=== PATIENT | female | born 1950 | race Caucasian/White ===

== ENCOUNTER 2018-04-30 06:22 | Day surgery (SDC) | payer MEDICARE, BC ==
[~2018-04-30 06:22] MED LIST: Lactated Ringers 1,000 ML IV SCH; Sodium Chloride 0.9% 10 ML Syringe FLUSH PRN; Sodium Chloride 0.9% 2.5 ML Syringe FLUSH PRN; ceFAZolin 2 GM in Premix Bag 1 BAG IV ONE
[2018-04-30] MEDS ORDERED: Isosulfan Blue 5 ML SDV ONE (06:32)
[2018-04-30] MEDS ORDERED: Bupivacaine 0.5% 30 ML SDV ONE (06:32)
[2018-04-30] MEDS ORDERED: Heparin Sodium 100 Units/ML 3 ML Syringe ONE (06:33)
[2018-04-30] MEDS ORDERED: Lidocaine 2% 5 ML SDV ONE (06:55)
[2018-04-30] MEDS ORDERED: Ondansetron 4 MG/2 ML SDV ONE (06:55)
[2018-04-30] MEDS ORDERED: Propofol 200 MG/20 ML SDV ONE (06:55)
[2018-04-30] MEDS ORDERED: Midazolam 1 MG/ML 2 ML SDV ONE (06:55)
[2018-04-30] MEDS ORDERED: fentaNYL 250 MCG/5 ML SDV ONE (06:55)
--- NOTE | 2018-04-30 07:24 | PCM.PREANE ---
Preanesthetic Assessment - Anesthesia/Transfusion/Family Hx Anesthesia History: Prior Anesthesia Without Reaction Other Type of Anesthesia Reaction Comment: Denies any known problem in past Family History of Anesthesia Reaction: No Transfusion History: No Prior Transfusion(s) - Review of Systems General: No Symptoms Pulmonary: No Symptoms Cardiovascular: No Symptoms Gastrointestinal: No Symptoms Neurological: No Symptoms Other: Reports: None - Physical Assessment NPO Status Date: 04/29/18 O2 Sat by Pulse Oximetry: 97 Respiratory Rate: 18 Vital Signs: Last Vital Signs Temp 36.2 C 04/30/18 07:05 Pulse 92 04/30/18 07:05 Resp 18 04/30/18 07:05 BP 158/85 H 04/30/18 07:05 Pulse Ox 97 04/30/18 07:05 Height: 1.6 m Weight: 80.286 kg ASA Class: 2 Mental Status: Alert & Oriented x3 Airway Class: Mallampati = 1 Dentition: Reports: Normal Dentition ROM/Head Extension: Full Lungs: Clear to Auscultation, Normal Respiratory Effort Cardiovascular: Regular Rate, Regular Rhythm - Allergies Allergies/Adverse Reactions: Allergies Allergy/AdvReac Type Severity Reaction Status Date / Time Chocolate Allergy Hives Uncoded 04/27/18 10:50 Tree Nuts Allergy Hives Uncoded 04/27/18 10:50 - Blood Blood Available: No - Anesthesia Plan Pre-Op Medication Ordered: None - Acknowledgements Anesthesia Type Planned: General Anesthesia Pt an Appropriate Candidate for the Planned Anesthesia: Yes Alternatives and Risks of Anesthesia Discussed w Pt/Guardian: Yes Pt/Guardian Understands and Agrees with Anesthesia Plan: Yes Additional Comments: PMH: htn, dm2, PLAN: ga-lma PreAnesthesia Questionnaire HEENT History: Reports: Other (See Below) Other HEENT History: wears glasses Cardiovascular History: Reports: Hypertension Gastrointestinal History: Reports: GERD, Irritable Bowel Syndrome Genitourinary History: Reports: None Musculoskeletal History: Reports: Arthritis, Fracture Other Musculoskeletal History: Fracture to nose age 4-5 yrs, Left Index finger and Right wrist Neurological History: Reports: None Endocrine/Metabolic History: Reports: Obesity/BMI 30+, Osteopenia Other Endocrine/Metabolic History: "prediabetic" Oncologic (Cancer) History: Reports: Breast Dermatologic History: Reports: Other (See Below) Other Dermatologic History: dry patch on forehead - Past Surgical History Head Surgeries/Procedures: Reports: None GI Surgical History: Reports: Cholecystectomy, Colonoscopy Female Surgical History: Reports: Breast Biopsy Other Female Surgeries/Procedures: rt breast bx x2, left breast lumpectomy Oncologic Surgical History: Reports: Biopsy of Breast, Lumpectomy Other Oncologic Surgeries/Procedures: Breast lumpectomy, hx: fibrocystic breasts - SUBSTANCE USE Smoking Status *Q: Never Smoker Recreational Drug Use History: No - HOME MEDS Home Medications: Home Meds Ascorbate Calcium [Vitamin C] 1 tab PO DAILY 03/28/15 [History] Calcium Carbonate/Vitamin D3 [Calcium 600-Vit D3 400 Tablet] 1 tab PO DAILY [History] Fish Oil/[place]-3 Fatty Acids [Fish Oil 1,000 MG] 1 cap PO DAILY 03/28/15 [ History] Gluc HCl/Csa/Sirisha Hy/Hyalur Ac [Glucosamine Chondroitin] 1 tab PO DAILY [History] Hydrochlorothiazide 1 tab PO PCDINNER 03/28/15 [History] Multivitamin [Multi-Vitamin Daily] 1 tab PO DAILY 03/28/15 [History] Vitamin E 1 cap PO DAILY 03/28/15 [History] Clobetasol [Clobetasol Propionate 0.05% Cream] 1 applic TOP ASDIRECTED PRN 03/09 [History] metFORMIN HCl [Metformin HCl ER] 1 tab PO BEDTIME 03/09/18 [History] Aspirin [Children's Aspirin] 81 mg CHEW DAILY 04/27/18 [History] Omeprazole Magnesium [Prilosec Otc] 20 mg PO ASDIRECTED PRN 04/27/18 [History] - CURRENT (IN HOUSE) MEDS Current Meds: Current Medications Lactated Ringer's (Ringers, Lactated) 1,000 mls @ 125 mls/hr IV ASDIRECTED JAXSON Sodium Chloride (Saline Flush) 10 ml FLUSH ASDIRECTED PRN PRN Reason: Keep Vein Open Sodium Chloride (Saline Flush) 2.5 ml FLUSH ASDIRECTED PRN PRN Reason: Keep Vein Open Discontinued Medications Bupivacaine HCl (Marcaine 0.5%) Confirm Administered Dose 30 ml .ROUTE .STK-MED ONE Stop: 04/30/18 06:33 Fentanyl (Sublimaze) Confirm Administered Dose 250 mcg .ROUTE .STK-MED ONE Stop: 04/30/18 06:56 Heparin Sodium (Porcine) (Heparin Lock Flush 100 Units/Ml) Confirm Administered Dose 300 unit .ROUTE .STK-MED ONE Stop: 04/30/18 06:34 Cefazolin Sodium/Dextrose 2 gm (/ Premix) 50 mls @ 100 mls/hr IV ONETIME ONE Stop: 04/27/18 14:53 Lidocaine HCl (Xylocaine-Mpf 1%) Confirm Administered Dose 10 mls @ as directed .ROUTE .ST-MED ONE Stop: 04/30/18 06:34 Isosulfan Blue (Lymphazurin 1%) Confirm Administered Dose 5 ml .ROUTE .STK-MED ONE Stop: 04/30/18 06:33 Lidocaine (Xylocaine-Mpf 2%) Confirm Administered Dose 5 ml .ROUTE .ST-MED ONE Stop: 04/30/18 06:56 Midazolam HCl (Versed 1 Mg/Ml) Confirm Administered Dose 2 mg .ROUTE .STK-MED ONE Stop: 04/30/18 06:56 Ondansetron HCl (Zofran) Confirm Administered Dose 4 mg .ROUTE .STK-MED ONE Stop: 04/30/18 06:56 Propofol (Diprivan 20 Ml) Confirm Administered Dose 200 mg .ROUTE .STK-MED ONE Stop: 04/30/18 06:56
[2018-04-30] MEDS ORDERED: Sodium Chloride 0.9% 20 ML ONE (10:47)
[2018-04-30] MEDS ORDERED: ceFAZolin 1 GM Vial ONE (10:47)
[2018-04-30] MEDS ORDERED: ePHEDrine 50 MG/ML SDV ONE (10:52)
--- NOTE | 2018-04-30 11:24 | PCM.OPNOTE ---
- General Post-Op/Procedure Note Date of Surgery/Procedure: 04/30/18 Operative Procedure(s): Right internal jugular port a cath placement Findings: RIJ port placement Pre Op Diagnosis: Breast cancer Post-Op Diagnosis: Breast cancer Anesthesia Technique: General LMA Primary Surgeon: Altagracia King Fluid Replacement, Intraop: 800 EBL in mLs: 10 Condition: Good
--- NOTE | 2018-04-30 12:02 | PCM.POSTAN ---
POST ANESTHESIA ASSESSMENT - MENTAL STATUS Mental Status: Alert, Oriented - RESPIRATORY Respiratory Status: Respiratory Rate WNL, Airway Patent, O2 Saturation Stable - CARDIOVASCULAR CV Status: Pulse Rate WNL, Blood Pressure Stable - GASTROINTESTINAL GI Status: No Symptoms - POST OP HYDRATION Hydration Status: Adequate & Stable
--- NOTE | 2018-04-30 12:17 | PCM48HPAN ---
Post Anesthesia Note - EVALUATION WITHIN 48HRS OF ANESTHETIC Vital Signs in Normal Range: Yes Patient Participated in Evaluation: Yes Respiratory Function Stable: Yes Airway Patent: Yes Cardiovascular Function Stable: Yes Hydration Status Stable: Yes Pain Control Satisfactory: Yes Nausea and Vomiting Control Satisfactory: Yes Mental Status Recovered: Yes Resp Rate: 16
--- NOTE | 2018-04-30 13:27 | CR ---
EXAMINATION: Portable chest radiograph. HISTORY: Port placement. FINDINGS: The trachea is midline. The cardiomediastinal silhouette is within normal limits. Mild atelectasis and/or infiltrate within the left lung base. There is right-sided portacatheter noted. No pneumothorax. Osseous structures appear unremarkable. IMPRESSION: 1. Right-sided portacatheter noted with tip in the SVC. 2. Left basilar atelectasis and/or infiltrate.
[2018-04-30 13:28] VITALS: BP 123/77
--- NOTE | 2018-05-01 12:21 | OR ---
SURGEON: GREGORIA MENDOZA MD DATE OF PROCEDURE: 04/30/2018 PREOPERATIVE DIAGNOSIS: Invasive ductal carcinoma of the breast. POSTOPERATIVE DIAGNOSIS: Invasive ductal carcinoma of the breast. PROCEDURE PERFORMED: Right internal jugular Port-A-Cath placement. ANESTHESIA: General LMA. FLUIDS: 800 mL of crystalloid. ESTIMATED BLOOD LOSS: 5 mL. FINDINGS: Placement of right internal jugular Port-A-Cath. COMPLICATIONS: None. INDICATIONS: The patient is a 67-year-old female with invasive ductal carcinoma of the left breast. She will be undergoing chemotherapy and is in need of a Port-A-Cath. I explained the procedure, expected perioperative course, and risks including bleeding, infection, or damage to surrounding structures including hemothorax or pneumothorax. The patient verbalized understanding and wishes to proceed. PROCEDURE IN DETAIL: The patient was brought into the OR and placed on the OR table in supine position. A time-out was completed verifying the patient's name, age, date of , allergies, and procedure to be performed. An ultrasound was used to verify the vascular anatomy of the right side of the neck. General LMA anesthesia was induced. Both arms were tucked to the patient's side and a shoulder roll placed under her shoulders. The neck and chest were prepped and draped in usual standard fashion. The patient was placed into Trendelenburg position. I then used an ultrasound to reverify the vascular anatomy of the right side of the neck. 1% lidocaine plain and 0.5% Marcaine plain were used to anesthetize the area overlying the vascular structures as well as the anterior chest wall where the port would be placed. Using ultrasound guidance, I guided a guide needle into the right internal jugular vein. A brisk return of venous blood was noted. A guidewire was placed down this needle into the vein and directed into the superior vena cava. The needle was removed and the C-arm was brought in to verify placement of the guidewire in the correct position. I then secured the guidewire to the drape and turned my attention to the right upper chest. I chose a spot two fingerbreadths below the lateral clavicle on the anterior chest wall. A 4 cm incision was made using a 15 blade. Cautery was used to create a subcutaneous pocket underneath this area in order for the Port- A-Cath device to be placed in. I tunneled the catheter tubing from the port site on the chest up to the guidewire insertion site on the neck. A vascular sheath and dilator were then placed along the guidewire, and C-arm was used to dilate the venous tract under direct visualization. The dilator and guidewire were removed and the catheter tubing was then placed down the vascular sheath. It was then peeled away. Under fluoroscopic guidance, I pulled the catheter tubing back into the SVC. A good return of venous blood was noted at the end of the catheter tubing. The catheter tubing was flushed with injectable saline. I trimmed the catheter tubing and placed it on the Port- A-Cath device. The port was then placed in the subcutaneous chest wall pocket. It was secured to the chest wall with two interrupted 2-0 Prolene sutures on either side of the Port-A-Cath device in the pocket. I accessed the port and a good return of venous blood was again noted. I then locked the Port-A- Cath device with 4 mL of heparinized saline. The chest wall site was closed with interrupted 3-0 Vicryl in the subcutaneous fat layer and the skin was closed with a running 4-0 Monocryl stitch. The guidewire insertion site at the neck was closed with interrupted 4-0 Monocryl suture. Steri-Strips and sterile dressings were applied. The patient tolerated the procedure well and was taken to PACU in stable condition. Postoperative chest x-ray showed good placement of the Port-A-Cath with no immediate complications. All counts were complete and correct at the end of the case. TABATHA PEACOCK /[id number] ALMA
== END 2018-04-30 13:04 | disposition home or self-care (01) ==
LOC: MW.SDS 06:22
PROVIDERS: ATTEND Surgery
DX: C50.911 Malignant neoplasm of unspecified site of right female breast (principal); I10 Essential (primary) hypertension; M81.0 Age-related osteoporosis without current pathological fracture; E11.9 Type 2 diabetes mellitus without complications; K21.9 Gastro-esophageal reflux disease without esophagitis; E66.9 Obesity, unspecified; Z68.31 Body mass index [BMI] 31.0-31.9, adult; Z91.010 Allergy to peanuts; Z91.018 Allergy to other foods; Z79.82 Long term (current) use of aspirin; Z79.84 Long term (current) use of oral hypoglycemic drugs; Z79.899 Other long term (current) drug therapy
CPT/HCPCS: 36561; 71045; 76000; J0690; J2250; J2405; J2704; J3010; J3490; J7120; J1642; Q9968